=== PATIENT | female | born 1995 | race Caucasian/White ===

== ENCOUNTER 2017-01-12 15:47 | Emergency (ER) | payer OTHER ==
[~2017-01-12] VITALS: Ht 162.6 cm; Wt 55.5 kg
[2017-01-12 15:53] VITALS: BP 134/80
--- NOTE | 2017-01-12 17:15 | NUR ---
Patient ambulated to [facility] to be evaluated as fast track by Dr. Loja. RN evaluating patient.
--- NOTE | 2017-01-12 17:16 | NUR ---
Dr. Loja evaluating patient in [facility].
[2017-01-12 17:33] VITALS: BP 134/80
--- NOTE | 2017-01-12 17:34 | NUR ---
Patient discharged with v/s stable. Written and verbal after care instructions given and explained. Patient verbalized understanding. Ambulatory with steady gait. All questions addressed prior to discharge. Advised to follow up with PMD.
== END 2017-01-12 17:34 | disposition home or self-care (01) ==
LOC: MED 15:47
DX: J02.9 Acute pharyngitis, unspecified (principal)
CPT/HCPCS: 99281